=== PATIENT | male | born 1935 | race Caucasian/White ===

== ENCOUNTER → 2016-07-30 | Outpatient (CLI) | payer OTHER, BC | LOC: BMCIMAGING 09:08 | PROVIDERS: ATTEND Physician Assistant | DX: M51.36 Other intervertebral disc degeneration, lumbar region (principal) ==

== ENCOUNTER → 2016-09-11 | Outpatient (CLI) | payer OTHER, BC | LOC: BMCIMAGING 09:04 | PROVIDERS: ATTEND Family Medicine | DX: S49.92XA Unspecified injury of left shoulder and upper arm, initial encounter (principal); M19.012 Primary osteoarthritis, left shoulder ==

== ENCOUNTER → 2016-11-13 | Outpatient (CLI) | payer OTHER, BC | LOC: BMCIMAGING 07:11 | PROVIDERS: ATTEND Internal Medicine Cardiovascular Disease | DX: I65.23 Occlusion and stenosis of bilateral carotid arteries (principal); I25.10 Atherosclerotic heart disease of native coronary artery without angina pectoris ==

== ENCOUNTER 2016-12-27 04:48 | Emergency (ER) | payer OTHER, BC ==
--- NOTE | 2016-12-27 05:11 | EDPHY ---
H & P Stated Complaint: SOB, anxiety HPI/ROS: HPI The patient presents with shortness of breath which awoke him from sleep at about 4:00 a.m. this morning. He sleeps with his CPAP machine on and he noticed that his respiratory rate was fast while wearing it. He checked his vital signs and says that his pulse was fast. He does not recall the exact number. His blood pressure was elevated and he recalls that his systolic blood pressure was 176. As he had continued symptoms so he came into the emergency department. He says he has had 1 similar prior episode and was diagnosed with dehydration. He denies any chest pain, nausea or vomiting, dizziness, leg swelling. He has no changes in his medications recently. He denies any coughing or fever, sore throat. His symptoms have now mostly resolved. REVIEW OF SYSTEMS Constitutional: No fever, no chills. Eyes: No discharge. ENT: No sore throat. Cardiovascular: No chest pain, no palpitations. Respiratory: No cough, positive for shortness of breath. Gastrointestinal: No abdominal pain, no vomiting. Genitourinary: No hematuria. Musculoskeletal: No back pain. Skin: No rashes. Neurological: No headache. PMHx: Hypertension, anxiety, CAD with stents in place Soc Hx: Housed PHYSICAL General Appearance: Alert, no distress Eyes: Pupils equal and round no pallor or injection ENT, Mouth: Mucous membranes moist Respiratory: There are no retractions, lungs are clear to auscultation Cardiovascular: Regular rate and rhythm Gastrointestinal: Abdomen is soft and non-tender, no masses, bowel sounds normal Neurological: A&O, moves all extremities Skin: Warm and dry, no rashes Musculoskeletal: Neck is supple non tender Extremities: symmetrical, full range of motion Psychiatric: Patient is oriented X 3, there is no agitation Source: Patient Exam Limitations: No limitations - Personal History Tetanus Vaccine Date: <10 years as of 2013 - Medical/Surgical History Hx Asthma: No Hx Chronic Respiratory Disease: No Hx Diabetes: No Hx Cardiac Disease: Yes Hx Renal Disease: No Hx Cirrhosis: No Hx Alcoholism: No Hx HIV/AIDS: No Hx Splenectomy or Spleen Trauma: No Other PMH: HX: HTN, hyperlipidemia, STENT PLACEMENT X4, HERNIA repair, L knee replacement, CATARACT REMOVAL - Social History Smoking Status: Former smoker Constitutional: Initial Vital Signs Temperature (C) 36.5 C 12/27/16 04:51 Heart Rate 92 12/27/16 04:51 Respiratory Rate 20 12/27/16 04:51 Blood Pressure 143/73 H 12/27/16 04:51 O2 Sat (%) 97 12/27/16 04:51 O2 Delivery Mode Room Air Allergies/Adverse Reactions: No Allergies [NKDA] Allergy (Verified 12/27/16 04:50) Home Medications: Medication Instructions Recorded Atorvastatin Calcium [Lipitor 40 40 mg PO HS 10/23/12 mg (*)] Pantoprazole Sodium [Protonix 40mg 40 mg PO DAILY 10/23/12 (*)] Aspirin [Aspirin 81mg (*)] 81 mg PO DAILY 09/24/13 Metoprolol Succinate Xr [Toprol Xl 50 mg PO HS 09/24/13 100 mg (*)] Multivitamins [Multivitamin (*)] 1 each PO DAILY 09/24/13 Crawford-3 Fatty Acids/Fish Oil 1 each PO DAILY 09/24/13 [Crawford 3 1,000 mg Softgel] Cholecalciferol (Vitamin D3) 2,000 unit PO DAILY 12/05/13 [Vitamin D3] Cyanocobalamin [Vitamin B12 (*)] 1,000 mcg PO DAILY 12/05/13 DESVENLAFAXINE SUCCINATE [PRISTIQ] 50 mg PO DAILY 12/05/13 LORazepam [Ativan (*)] 0.5 mg PO BID PRN 12/05/13 Losartan Potassium [Cozaar] 100 mg PO DAILY 12/05/13 Tamsulosin HCl [Flomax 0.4 MG (*)] 0.4 mg PO DAILY 12/05/13 Medical Decision Making - Diagnostics EKG Interpretation: EKG: Complete interpretation has been separately recorded in the [employer] archive. Summary impression: Normal sinus rhythm with nonspecific T-wave flattening in V2 and V3 Imaging Results: Chest x-ray two view shows no cardiomegaly, no effusion, no infiltrate, unchanged from prior chest x-ray, interpreted by me, radiology interpretation is pending. Differential Diagnosis: 81-year-old male with hypertension, CAD, anxiety presents with shortness of breath which awoke him from sleep while using his CPAP machine, symptoms have now mostly resolved. On exam, vital signs are normal, he is well-appearing with a normal physical exam. Differential diagnosis includes CHF, pneumonia, pleural effusion, pulmonary edema, pneumothorax, less likely pulmonary embolism given no chest pain. In the emergency department, labs were checked including troponin and were all normal. EKG showed nonspecific changes, though nothing suggestive of acute ischemia. The patient had no ongoing symptoms, vital signs were stable throughout his stay. The cause of his shortness of breath is not entirely clear , however I doubt any serious pathology. I will advise him to follow up with his regular doctor in the next few days. - Data Points Laboratory Results: Laboratory Results 12/27/16 05:19 12/27/16 05:19 12/27/16 12/27/16 05:19 05:19 WBC 6.11 10^3/uL 10^3/uL (3.80-9.50) RBC 4.69 10^6/uL 10^6/uL (4.40-6.38) Hgb 14.6 g/dL g/dL (13.7-17.5) Hct 42.2 % % (40.0-51.0) MCV 90.0 fL fL (81.5-99.8) MCH 31.1 pg pg (27.9-34.1) MCHC 34.6 g/dL g/dL (32.4-36.7) RDW 12.8 % % (11.5-15.2) Plt Count 189 10^3/uL 10^3/uL (150-400) MPV 9.0 fL fL (8.7-11.7) Neut % (Auto) 54.4 % % (39.3-74.2) Lymph % (Auto) 31.3 % % (15.0-45.0) Nuckolls % (Auto) 9.5 % % (4.5-13.0) Eos % (Auto) 3.1 % % (0.6-7.6) Baso % (Auto) 0.7 % % (0.3-1.7) Nucleat RBC Rel Count 0.0 % % (0.0-0.2) Absolute Neuts (auto) 3.33 10^3/uL 10^3/uL (1.70-6.50) Absolute Lymphs (auto) 1.91 10^3/uL 10^3/uL (1.00-3.00) Absolute Monos (auto) 0.58 10^3/uL 10^3/uL (0.30-0.80) Absolute Eos (auto) 0.19 10^3/uL 10^3/uL (0.03-0.40) Absolute Basos (auto) 0.04 10^3/uL 10^3/uL (0.02-0.10) Absolute Nucleated RBC 0.00 10^3/uL 10^3/uL (0-0.01) Immature Gran % 1.0 % % (0.0-1.1) Immature Gran # 0.06 10^3/uL 10^3/uL (0.00-0.10) Sodium 143 mEq/L mEq/L (134-144) Potassium 4.0 mEq/L mEq/L (3.5-5.2) Chloride 104 mEq/L mEq/L (97-110) Carbon Dioxide 26 mEq/l mEq/l (22-31) Anion Gap 13 mEq/L mEq/L (8-16) BUN 19 mg/dL mg/dL (7-23) Creatinine 0.9 mg/dL mg/dL (0.7-1.3) Estimated GFR > 60 Glucose 101 mg/dL H mg/dL (70-100) Calcium 9.1 mg/dL mg/dL (8.5-10.4) Total Bilirubin 0.5 mg/dL mg/dL (0.1-1.4) AST 29 IU/L IU/L (17-59) ALT 45 IU/L IU/L (21-72) Alkaline Phosphatase 74 IU/L IU/L (38-126) Troponin I < 0.012 ng/mL ng/mL (0.000-0.034) Total Protein 7.0 g/dL g/dL (6.3-8.2) Albumin 4.0 g/dL g/dL (3.5-5.0) Departure - Departure Disposition: Home, Routine, Self-Care Clinical Impression: Shortness of breath Condition: Good Instructions: Dyspnea (ED) Additional Instructions: Please follow-up with your regular doctor in the next 2 days. You should return to the emergency room if your symptoms return at all. Referrals: Alejandra Feliciano MD [Primary Care Provider] - As per Instructions
--- NOTE | 2016-12-27 05:16 | CPEKG ---
Heart Rate: 87 RR Interval: 690 P-R Interval: 244 QRSD Interval: 98 QT Interval: 388 QTC Interval: 467 P [place]: -26 QRS [place]: 45 T Wave [place]: 20 EKG Severity - ABNORMAL ECG - EKG Impression: SINUS RHYTHM EKG Impression: ATRIAL PREMATURE COMPLEX EKG Impression: FIRST DEGREE AV BLOCK Electronically Signed By: Niki Jay 27-Dec-2016 07:05:47
--- NOTE | 2016-12-27 05:16 | CPEKG ---
Heart Rate: 87 RR Interval: 690 P-R Interval: 244 QRSD Interval: 98 QT Interval: 388 QTC Interval: 467 P [place]: -26 QRS [place]: 45 T Wave [place]: 20 EKG Severity - ABNORMAL ECG - EKG Impression: SINUS RHYTHM EKG Impression: ATRIAL PREMATURE COMPLEX EKG Impression: FIRST DEGREE AV BLOCK Electronically Signed By: Niki Jay 27-Dec-2016 07:05:47
[2016-12-27 05:42] LABS: PLATELET COUNT 189 10^3/uL (150-400)
[2016-12-27 06:35] VITALS: BP 140/87; PULSE 79; RESP 18; TEMP 97.9; O2SAT 93
== END 2016-12-27 06:32 | disposition home or self-care (01) ==
DX: R06.02 Shortness of breath (principal); I10 Essential (primary) hypertension; I25.10 Atherosclerotic heart disease of native coronary artery without angina pectoris; Z79.82 Long term (current) use of aspirin; Z87.891 Personal history of nicotine dependence; Z95.5 Presence of coronary angioplasty implant and graft

== ENCOUNTER → 2017-02-18 | Outpatient (CLI) | payer OTHER, BC | LOC: FIMAGING 09:50 | PROVIDERS: ATTEND Orthopaedic Surgery Hand Surgery | DX: M25.512 Pain in left shoulder (principal); M75.102 Unspecified rotator cuff tear or rupture of left shoulder, not specified as traumatic; M75.22 Bicipital tendinitis, left shoulder; M75.82 Other shoulder lesions, left shoulder; M19.012 Primary osteoarthritis, left shoulder ==

== ENCOUNTER 2017-08-10 05:14 | Day surgery (SDC) | payer OTHER, BC ==
[2017-08-10] MEDS ORDERED: ceFAZolin 2 GM/SWFI 2 GM/20 ML SYR IVP ONE (05:39)
[2017-08-10] MEDS ORDERED: LIDOCAINE 1% 2 ML INJ ID PRN (05:40)
[2017-08-10] MEDS ORDERED: LR 1,000 ML IV ONE (05:40)
[2017-08-10] MEDS ORDERED: ceFAZolin 2 GM/DEXTROSE 100 ML IV ONE (06:00)
[2017-08-10] MEDS ORDERED: LIDOCAINE 2% 5 ML SDV ONE ×2 (06:48→07:12)
[2017-08-10] MEDS ORDERED: BUPIVACAINE 0.25% 30 ML SDV ONE (06:48)
[2017-08-10] MEDS ORDERED: ceFAZolin 1 GM/5 ML SYR ONE (06:48)
--- NOTE | 2017-08-10 07:00 | PDANEPAE ---
ANE History of Present Illness 82 yo male for L second toe placement. ANE Past Medical History - Cardiovascular History Hx Hypertension: Yes Hx Arrhythmias: No Hx Chest Pain: No Hx Coronary Artery / Peripheral Vascular Disease: Yes Hx CHF / Valvular Disease: No Hx Palpitations: No Cardiovascular History Comment: STENT X3 MOST RECENT 2014. 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 did not order any new tests at visit a few months ago, and said he would see him in another year - Pulmonary History Hx COPD: No Hx Asthma/Reactive Airway Disease: No Hx Recent Upper Respiratory Infection: No Hx Oxygen in Use at Home: No Hx Sleep Apnea: Yes Sleep Apnea Screening Result - Last Documented: Positive Pulmonary History Comment: MARKUS USES C-PAP INSTRUCTED TO BRING DOS - Neurologic History Hx Cerebrovascular Accident: No Hx Seizures: No Hx Dementia: No - Endocrine History Hx Diabetes: No Hypothyroid: No Hyperthyroid: No Obesity: no - Renal History Hx Renal Disorders: Yes Renal History Comment: BPH - Liver History Hx Hepatic Disorders: No - Neurological & Psychiatric Hx Hx Neurological and Psychiatric Disorders: Yes Neurological / Psychiatric History Comment: DEPRESSION - Cancer History Hx Cancer: No - Congenital Disorder History Hx Congenital Disorders: No - GI History Hx Gastrointestinal Disorders: Yes Gastrointestinal History Comment: HIATAL HERNIA - Other Health History Other Health History: OSTEOARTHRITIS ESPECIALLY RT HIP. SANAM SHLDR SORENESS. MISSING TEETH. 2ND TOE LT FOOT DEFORMITY - Chronic Pain History Chronic Pain: No - Surgical History Prior Surgeries: PILONIDAL CYST. SANAM CATARACTS. RT ING HERNIA. LT TOTAL KNEE. EGD ANE Review of Systems Review of Systems: - Exercise capacity METS (RN): 4 METS - Systems Constitutional: Reports: no symptoms Cardiac: Reports: no symptoms ANE Patient History - Allergies Allergies/Adverse Reactions: No Allergies [NKDA] Allergy (Verified 12/27/16 04:50) - Home Medications Home Medications: Atorvastatin Calcium [Lipitor 40 mg (*)] 40 mg PO DAILY 10/23/12 [Last Taken 05:00] Pantoprazole Sodium [Protonix 40mg (*)] 40 mg PO DAILY 10/23/12 [Last Taken 05:00] Aspirin [Aspirin 81mg (*)] 81 mg PO DAILY 09/24/13 [Last Taken 08/10/17 05:00] Multivitamins [Multivitamin (*)] 1 each PO DAILY 09/24/13 [Last Taken 1 Week Ago ~08/03/17] Lincoln-3 Fatty Acids/Fish Oil [Lincoln 3 1,000 mg Softgel] 1 each PO DAILY [Last Taken 1 Week Ago ~08/03/17] Cholecalciferol (Vitamin D3) [Vitamin D3] 2,000 unit PO DAILY 12/05/13 [Last Taken 1 Week Ago ~08/03/17] Cyanocobalamin [Vitamin B12 (*)] 1,000 mcg PO DAILY 12/05/13 [Last Taken 1 Week Ago ~08/03/17] DESVENLAFAXINE SUCCINATE [PRISTIQ] 50 mg PO DAILY 12/05/13 [Last Taken 08/10/17 05:00] LORazepam [Ativan (*)] 0.5 mg PO BID PRN 12/05/13 [Last Taken 08/10/17 05:00] Losartan Potassium [Cozaar] 100 mg PO DAILY 12/05/13 [Last Taken 08/10/17 05:00] Tamsulosin HCl [Flomax 0.4 MG (*)] 0.4 mg PO HS 12/05/13 [Last Taken 08/09/17 21 :00] Amlodipine Bes/Olmesartan Med DAILY 07/21/17 [Last Taken 08/10/17 05:00] - NPO status NPO Since - Liquids (Date): 08/10/17 NPO Since - Liquids (Time): 05:00 (water with meds) NPO Since - Solids (Date): 08/09/17 NPO Since - Solids (Time): 21:00 - Anes Hx Anes Hx: no prior problems - Smoking Hx Smoking Status: Former smoker (quit about 40 yrs ago) Marijuana use: No - Alcohol Use Alcohol Use: None (sober x 40 years) - Family Anes Hx Family Anes Hx: neg - N/A ANE Labs/Vital Signs - Vital Signs Blood Pressure: 130/76 Heart Rate: 64 Respiratory Rate: 16 O2 Sat (%): 93 Height: 170.18 cm Weight: 81.647 kg ANE Physical Exam - Airway Neck exam: FROM Mallampati Score: Class 3 Mouth exam: poor dentition - Pulmonary Pulmonary: clear to auscultation - Cardiovascular Cardiovascular: regular rate and rhythym - ASA Status ASA Status: III ANE Anesthesia Plan Anesthesia Plan: GA with mask Total IV Anesthesia: Yes
--- NOTE | 2017-08-10 07:00 | PDHPUP ---
History & Physical Update H&P update statement: This history and physical update is based on an assessment of the patient which was completed after admission or registration (within 24 hours), but prior to the surgery/procedure. H&P update: H&P reviewed & patient examined
[2017-08-10] MEDS ORDERED: PROPOFOL/EMULSION 500 MG/50 ML BOTTLE IV ONE (07:12)
[2017-08-10] MEDS ORDERED: fentaNYL 100 MCG/2 ML INJ ONE (07:12)
[2017-08-10] MEDS ORDERED: DEXAMETHASONE 4 MG/ML VIAL ONE ×2 (07:16)
[2017-08-10] MEDS ORDERED: fentaNYL 100 MCG/2 ML INJ IVP PRN (08:03)
[2017-08-10] MEDS ORDERED: ACETAMINOPHEN 500 MG TAB PO PRN (08:03)
[2017-08-10] MEDS ORDERED: LR 500 ML IV PRN (08:03)
[2017-08-10] MEDS ORDERED: HYDROCODONE/APAP 5/325 TAB PO PRN (08:03)
[2017-08-10] MEDS ORDERED: NALOXONE HCL 0.4 MG/ML INJ IVP PRN (08:03)
[2017-08-10] MEDS ORDERED: ALBUTEROL 3 ML DEYVIAL IH PRN (08:03)
[2017-08-10] MEDS ORDERED: ONDANSETRON 4 MG/2 ML VIAL IVP PRN (08:03)
--- NOTE | 2017-08-10 08:04 | POSTANESTH ---
Post Anesthetic Evaluation Cardiovascular Status: Normal, Stable Respiratory Status: Normal, Stable Level of Consciousness/Mental Status: Can Participate in Eval, Alert and Oriented Pain Control: Adequate, Prn Tx Ordered Nausea/Vomiting Control: Adequate, Prn Tx Ordered Complications Possibly Related to Anesthesia: None Noted
--- NOTE | 2017-08-10 08:15 | POSTOPPROG ---
Post Op Note Date of Operation: 08/10/17 Surgeon: Abiel Ramos Anesthesia: IV Sedation Pre-op Diagnosis: left 2nd hammertoe Post-op Diagnosis: same Indication: pain to PIP, left 2nd toe Procedure: arthrodesis left 2nd toe Inf/Abcess present in the surg proc area at time of surgery?: No EBL: Minimal Total fluids administered: per anesth Complications: none
[2017-08-10] MEDS ORDERED: ONDANSETRON DISINTEGRATING 4 MG TAB PO PRN (08:21)
[2017-08-10 09:55] VITALS: BP 129/65
--- NOTE | 2017-08-10 11:27 | GOP ---
[f rep st] OPERATIVE REPORT DATE OF OPERATION: 08/10/2017 SURGEON: Abiel Ramos DPM [place] PHOTOGRAPHER: None. ANESTHESIA: Local with monitored anesthesia care. PREOPERATIVE DIAGNOSIS: 1. Left foot 2nd toe hammertoe. 2. Joint deformity second metatarsophalangeal left foot. POSTOPERATIVE DIAGNOSIS: 1. Left foot 2nd toe hammertoe. 2. Joint deformity second metatarsophalangeal left foot. PROCEDURE PERFORMED: 1. Arthrodesis of the proximal interphalangeal joint, 2nd toe, left foot. 2. Tenotomy and capsulotomy of the 2nd metatarsophalangeal joint, left foot. FINDINGS: ESTIMATED BLOOD LOSS: Scant. DESCRIPTION OF PROCEDURE: Under mild sedation, the patient was brought to the operating room, placed on the operating table in the supine position. Following further IV sedation, a forefoot block of 0 .25% Marcaine plain was infiltrated about the patient's left forefoot. The foot was then scrubbed, p repped, and draped in the usual aseptic manner. A sterile pneumatic tourniquet was then placed about the patient's well-padded supramalleolar area of the left ankle. The left foot was then exsanguinat ed with an Esmarch bandage and the tourniquet was inflated to 250 mmHg. Attention was then directed to the area overlying the dorsal aspect of the 2nd proximal phalangeal ester int where 2 semi-elliptical transverse incision was placed over this area encompassing an already pre sent callus deformity. The complete ellipse of skin was then removed sharply. The incision was deep ened via sharp and blunt dissection with care being taken to identify retract all vital neurovascular structures. All bleeders were ligated and cauterized as necessary. A transverse tenotomy and capsulotomy over the proximal interphalangeal joint was made. The soft tis maxime structures were reflected medially and laterally thus exposing the head of the proximal phalanx a nd the base of the middle phalanx. At this time utilizing a sagittal saw, the articular surface of t he base of the middle phalanx was removed and passed from the operative field. A roughly 3 mm portio n of the head of the proximal phalanx was removed and passed from the operative field. At this time, the middle and proximal phalanges was prepared as per the implant instruction guidelines. At this t wiley, the receiving end of the implant was placed in base of the middle phalanx and the male portion w as placed in the proximal phalanx. This was a 10 degree angled implant to hold some natural plantar flexion at the proximal interphalangeal joint. The implant was then inserted into the receiving ends and the 2 ends of the arthrodesis site was well coapted. Intraoperative x-rays were taken. There w as some mild gapping within the plantar aspect of the arthrodesis site, but the implant appears to be holding quite well and the position of the toe is appropriate. At this time, there was still some dorsal contracture at the 2nd metatarsophalangeal joint. A 1 cm l azy S type incision was made over this joint. The incision was deepened via sharp and blunt dissecti on, care being taken to identify and retract all vital neurovascular structures. All bleeders were l igated and cauterized as necessary. Next, utilizing a hemostat and blunt dissection, the long extensor tendon was identified and transect ed. This released an appropriate amount of dorsal contracture and leveled the half dorsal angulation of the proximal phalanx. The wounds were flushed with copious amounts of sterile normal saline, and the deep structures were closed with 4-0 Monocryl and the skin was closed with 4-0 Prolene interrupt ed simple sutures. The wounds were dressed with Xeroform and a sterile compressive dressing consisti ng of 4 x 4s and Mikey. An Barrett bandage was then applied. The tourniquet was deflated and a prompt h yperemic response was noted to all digits of both foot. Final intraoperative final fluoroscopic imag es were taken and noted to be adequate. The patient tolerated the procedure and anesthesia well. He was transferred to the recovery room wit h vital signs stable, vascular status intact to all digits of left foot. Following a period of posto p monitoring, the patient will be discharged home with the following written and oral postoperative i nstructions: 1. Keep dressing clean, dry, and intact. 2. Ice and elevate as instructed. 3. Use a surgical shoe at all times when ambulating. 4. All followup questions or concerns should be directed toward [facility] at [phone]. PATHOLOGY: None. HEMOSTASIS: Pneumatic ankle tourniquet about the patient's left ankle at 250 mmHg for 33 minutes. MATERIALS: A 10 degree Cleary and Nephew intramedullary arthrodesis with implant. INJECTABLES: 20 cc of 0.25% Marcaine plain. COMPLICATIONS: None. INDICATIONS FOR PROCEDURE: The patient is an otherwise healthy 82-year-old gentleman who presented t o my office multiple times over the last 12-24 months for pain in the dorsal aspect of the 2nd proxim al interphalangeal joint due to rubbing of the toe against the toe box due to the contracture deformi ty of his 2nd toe, left foot. The patient has used multiple different padding devices, as well as th e patient has also tried multiple different types of shoe gear. The patient understands the risks, b enefits, and alternatives to the procedure presented and wishes to proceed. /[id number]/MODL
== END 2017-08-10 10:30 | disposition home or self-care (01) ==
LOC: FSGY 05:14
PROVIDERS: ATTEND Podiatrist Foot & Ankle Surgery
PROC: 0SGQ0ZZ (ICD-10-PCS; principal; 2017-08-10 07:15)
DX: M20.42 Other hammer toe(s) (acquired), left foot (principal); I25.10 Atherosclerotic heart disease of native coronary artery without angina pectoris; Z95.5 Presence of coronary angioplasty implant and graft; I10 Essential (primary) hypertension; G47.33 Obstructive sleep apnea (adult) (pediatric)
CPT/HCPCS: C1713; J0690; J1100; J2704; J3010

== ENCOUNTER → 2017-10-28 | Outpatient (CLI) | payer OTHER, BC | LOC: BMCIMAGING 09:22 | PROVIDERS: ATTEND Orthopaedic Surgery | DX: M16.11 Unilateral primary osteoarthritis, right hip (principal) ==

== ENCOUNTER → 2018-06-23 | Outpatient (CLI) | payer OTHER, BC | LOC: BMCIMAGING 08:52 → EDSTATUS 09:14 | PROVIDERS: ATTEND Orthopaedic Surgery | DX: M17.11 Unilateral primary osteoarthritis, right knee (principal); M16.11 Unilateral primary osteoarthritis, right hip; M22.41 Chondromalacia patellae, right knee; I87.8 Other specified disorders of veins ==

== ENCOUNTER 2018-07-21 22:28 | Observation (INO) | payer OTHER, BC ==
[2018-07-21 22:54] LABS: PLATELET COUNT 212 10^3/uL (150-400)
[2018-07-21] MEDS ORDERED: NS 500 ML IV ONE (22:56)
--- NOTE | 2018-07-21 23:01 | EDPHY ---
H & P Stated Complaint: HEADACHE, CHEST TIGHTNESS, HTN Time Seen by Provider: 07/21/18 22:38 HPI/ROS: HPI The patient presents with headache, chest discomfort, elevated blood pressure. This evening he developed a diffuse throbbing headache which she occasionally has. He took 2 aspirin 81 mg tabs with improvement in his headache. He checked his blood pressure at home and noticed it was in the 180s over 90s which is elevated for him. He normally runs in the 140s over 60s. He believes he recently stopped taking his antihypertensive medication because he was having some orthostatic hypotension type symptoms. Then at about 10 15 he developed mild chest discomfort which he feels in his midsternal region which lasted for about 10-15 minutes and improved while he was driving here. This discomfort did not radiate, was very mild, not associated with any nausea, vomiting, dizziness, diaphoresis. He has never had a before. He exercises 4 to 5 times a week with no chest pain.. REVIEW OF SYSTEMS 10 systems were reviewed and negative with the exception of the elements mentioned in the history of present illness. PMHx: CAD, stents in place, hypertension Soc Hx: Here with his , nonsmoker PHYSICAL General Appearance: Alert, no distress Eyes: Pupils equal and round no pallor or injection ENT, Mouth: Mucous membranes moist Respiratory: There are no retractions, lungs are clear to auscultation Cardiovascular: Regular rate and rhythm Gastrointestinal: Abdomen is soft and non-tender, no masses, bowel sounds normal Neurological: A&O, moves all extremities Skin: Warm and dry, no rashes Musculoskeletal: Neck is supple non tender Extremities: symmetrical, full range of motion Psychiatric: Patient is oriented X 3, there is no agitation Source: Patient, Old records Exam Limitations: No limitations - Personal History Current Tetanus/Diphtheria Vaccine: Yes Current Tetanus Diphtheria and Acellular Pertussis (TDAP): Yes Tetanus Vaccine Date: <10 years as of 2013 - Medical/Surgical History Hx Asthma: No Hx Chronic Respiratory Disease: No Hx Diabetes: No Hx Cardiac Disease: Yes Hx Renal Disease: No Hx Cirrhosis: No Hx Alcoholism: No Hx HIV/AIDS: No Hx Splenectomy or Spleen Trauma: No Other PMH: HX: HTN, hyperlipidemia, STENT PLACEMENT X4, HERNIA repair, L knee replacement, CATARACT REMOVAL - Social History Smoking Status: Former smoker Constitutional: Initial Vital Signs Temperature (C) 36.6 C 07/21/18 22:30 Heart Rate 84 07/21/18 22:30 Respiratory Rate 18 07/21/18 22:30 Blood Pressure 189/84 H 07/21/18 22:30 O2 Sat (%) 97 07/21/18 22:30 O2 Delivery Mode Room Air Allergies/Adverse Reactions: No Allergies [NKDA] Allergy (Verified 07/21/18 22:32) Home Medications: Medication Instructions Recorded Atorvastatin Calcium [Lipitor 40 40 mg PO DAILY 10/23/12 mg (*)] Pantoprazole Sodium [Protonix 40mg 40 mg PO DAILY 10/23/12 (*)] Aspirin [Aspirin 81mg (*)] 81 mg PO DAILY 09/24/13 Multivitamins [Multivitamin (*)] 1 each PO DAILY 09/24/13 Richardson-3 Fatty Acids/Fish Oil 1 each PO DAILY 09/24/13 [Richardson 3 1,000 mg Softgel] Cholecalciferol (Vitamin D3) 2,000 unit PO DAILY 12/05/13 [Vitamin D3] Cyanocobalamin [Vitamin B12 (*)] 1,000 mcg PO DAILY 12/05/13 DESVENLAFAXINE SUCCINATE [PRISTIQ] 50 mg PO DAILY 12/05/13 LORazepam [Ativan (*)] 0.5 mg PO BID PRN 12/05/13 Losartan Potassium [Cozaar] 100 mg PO DAILY 12/05/13 Tamsulosin HCl [Flomax 0.4 MG (*)] 0.4 mg PO HS 12/05/13 Amlodipine Bes/Olmesartan Med DAILY 07/21/17 Medical Decision Making - Diagnostics EKG Interpretation: EKG: Complete interpretation has been separately recorded in the [facility] archive. Summary impression: Normal sinus rhythm Imaging Results: Imaging Impressions Chest X-Ray 07/21/18 22:45 Impression: Mild stable cardiac silhouette enlargement, with no evidence of congestive heart failure or focal infiltrate. Differential Diagnosis: 83-year-old man with history of CAD status post cardiac stent placed presents with transient chest pain. His heart score is 4. EKG, troponin, chest x-ray all unremarkable. Plan for admission to the hospital given his heart score. Remainder of labs is unremarkable. Differential diagnosis includes GERD, ACS, muscle strain. Case discussed with Dr. Erickson of the hospitalist service for admission. - Data Points Laboratory Results: Laboratory Results 07/21/18 22:45 07/21/18 22:45 07/21/18 07/21/18 07/21/18 22:48 22:45 22:45 WBC 7.30 10^3/uL 10^3/uL (3.80-9.50) RBC 5.02 10^6/uL 10^6/uL (4.40-6.38) Hgb 15.5 g/dL g/dL (13.7-17.5) Hct 46.3 % % (40.0-51.0) MCV 92.2 fL fL (81.5-99.8) MCH 30.9 pg pg (27.9-34.1) MCHC 33.5 g/dL g/dL (32.4-36.7) RDW 12.5 % % (11.5-15.2) Plt Count 212 10^3/uL 10^3/uL (150-400) MPV 8.8 fL fL (8.7-11.7) Neut % (Auto) 51.1 % % (39.3-74.2) Lymph % (Auto) 33.8 % % (15.0-45.0) [place] % (Auto) 12.5 % % (4.5-13.0) Eos % (Auto) 1.8 % % (0.6-7.6) Baso % (Auto) 0.7 % % (0.3-1.7) Nucleat RBC Rel Count 0.0 % % (0.0-0.2) Absolute Neuts (auto) 3.73 10^3/uL 10^3/uL (1.70-6.50) Absolute Lymphs (auto) 2.47 10^3/uL 10^3/uL (1.00-3.00) Absolute Monos (auto) 0.91 10^3/uL H 10^3/uL (0.30-0.80) Absolute Eos (auto) 0.13 10^3/uL 10^3/uL (0.03-0.40) Absolute Basos (auto) 0.05 10^3/uL 10^3/uL (0.02-0.10) Absolute Nucleated RBC 0.00 10^3/uL 10^3/uL (0-0.01) Immature Gran % 0.1 % % (0.0-1.1) Immature Gran # 0.01 10^3/uL 10^3/uL (0.00-0.10) Sodium 136 mEq/L mEq/L (135-145) Potassium 3.7 mEq/L mEq/L (3.5-5.2) Chloride 99 mEq/L mEq/L (97-110) Carbon Dioxide 26 mEq/l mEq/l (22-31) Anion Gap 11 mEq/L mEq/L (6-14) BUN 16 mg/dL mg/dL (7-23) Creatinine 1.0 mg/dL mg/dL (0.7-1.3) Estimated GFR > 60 Glucose 114 mg/dL H mg/dL (70-100) Calcium 9.6 mg/dL mg/dL (8.5-10.4) POC Troponin I 0.02 ng/mL ng/mL (0.00-0.08) Medications Given: Discontinued Medications Acetaminophen (Tylenol) 650 mg PO EDNOW ONE Stop: 07/22/18 00:35 Last Admin: 07/22/18 00:35 Dose: 650 mg Sodium Chloride (Ns) 500 mls @ 1,000 mls/hr IV EDNOW ONE PRN Reason: Protocol Stop: 07/21/18 23:25 Last Admin: 07/21/18 23:06 Dose: 500 mls Point of Care Test Results: Chemistry 07/21/18 22:48 POC Troponin I 0.02 ng/mL ng/mL (0.00-0.08) Departure - Departure Disposition: [facility] Inpatient Acute Condition: Good
[2018-07-22] MEDS ORDERED: ACETAMINOPHEN 325 MG TAB ONE (00:33)
[2018-07-22] MEDS ORDERED: ACETAMINOPHEN 325 MG TAB PO ONE (00:34)
[2018-07-22] MEDS ORDERED: ONDANSETRON DISINTEGRATING 4 MG TAB PO PRN (01:03)
[2018-07-22] MEDS ORDERED: ONDANSETRON 4 MG/2 ML VIAL IVP PRN (01:03)
[2018-07-22] MEDS ORDERED: ACETAMINOPHEN 325 MG TAB PO PRN (01:03)
[2018-07-22] MEDS ORDERED: NITROGLYCERIN 0.4 MG BTL SL PRN (01:07)
--- NOTE | 2018-07-22 01:14 | PDGENHP ---
History and Physical - Chief Complaint chest pain - History of Present Illness Source - patient provides history appears reliable. EMR was reviewed and case discussed with ED provider. HPI-this is a very pleasant 83-year-old gentleman with a past medical history significant for CAD with history of stent x4, hiatal hernia with GERD, BPH, HTN , HLD who presents to the emergency department late this evening with complaints of headache, elevated blood pressures and 10-15 minutes of chest pain. Patient developed a headache earlier in the evening. He took two 81 mg tabs of aspirin with some improvement in his headache. He checked his blood pressure which was elevated 180/90s and at baseline has been 140s over 60s. Patient reports that patient was developing orthostasis and so his plug shaper hand (whose name he can't recall) with [facility] took him off of his blood pressure medications which she also cannot recall which. Since that time patient states his blood pressures have been well controlled at home and he checks them intermittently. Patient notes that he occasionally does have similar headaches as the 1 he experienced today. Patient reports that he ate dinner and subsequently went to bed to read for awhile. He subsequently developed some substernal chest discomfort. He denies any stabbing or pressure type sensation. No associated shortness of breath, diaphoresis, nausea/ vomiting or radiating pain. Patient denies any history of lower extremity edema , orthopnea or PND. Patient notes that he is relatively healthy and active. He works at 4 times weekly if not more. He has never developed any chest discomfort. Family history significant for coronary artery disease in both parents over 70. Patient has not had a stress test in several years. History Information - Allergies/Home Medication List Allergies/Adverse Reactions: No Allergies [NKDA] Allergy (Verified 07/21/18 22:32) Home Medications: Atorvastatin Calcium [Lipitor 40 mg (*)] 40 mg PO DAILY 10/23/12 [Last Taken 05:00] Pantoprazole Sodium [Protonix 40mg (*)] 40 mg PO DAILY 10/23/12 [Last Taken 05:00] Aspirin [Aspirin 81mg (*)] 81 mg PO DAILY 09/24/13 [Last Taken 08/10/17 05:00] Multivitamins [Multivitamin (*)] 1 each PO DAILY 09/24/13 [Last Taken 1 Week Ago ~08/03/17] [place]-3 Fatty Acids/Fish Oil [[place] 3 1,000 mg Softgel] 1 each PO DAILY [Last Taken 1 Week Ago ~08/03/17] Cholecalciferol (Vitamin D3) [Vitamin D3] 2,000 unit PO DAILY 12/05/13 [Last Taken 1 Week Ago ~08/03/17] Cyanocobalamin [Vitamin B12 (*)] 1,000 mcg PO DAILY 12/05/13 [Last Taken 1 Week Ago ~08/03/17] DESVENLAFAXINE SUCCINATE [PRISTIQ] 50 mg PO DAILY 12/05/13 [Last Taken 08/10/17 05:00] LORazepam [Ativan (*)] 0.5 mg PO BID PRN 12/05/13 [Last Taken 08/10/17 05:00] Losartan Potassium [Cozaar] 100 mg PO DAILY 12/05/13 [Last Taken 08/10/17 05:00] Tamsulosin HCl [Flomax 0.4 MG (*)] 0.4 mg PO HS 12/05/13 [Last Taken 08/09/17 21 :00] Amlodipine Bes/Olmesartan Med DAILY 07/21/17 [Last Taken 08/10/17 05:00] I have personally reviewed and updated: family history, medical history, social history, surgical history - Past Medical History Additional medical history: CAD with history of stentx4. BPH, HTN, HLD, hiatal hernia - Surgical History Additional surgical history: Cardiac cath x2, left TKA, cataract extraction with lens placement bilaterally, pilonidal cyst removal in his youth, right inguinal hernia repair - Family History Additional family history: Family history significant for cardiac disease in mother and father at age greater than 70. Patient has 2 adult sons 1 of whom lives in [facility] and he reports both are very active and healthy. - Social History Smoking Status: Former smoker Tobacco Use: Cigarettes (Patient quit 40 years ago) Alcohol Use: None Drug Use: None Additional social history: Patient lives with his girlfriend. One son lives in [place] and other in [place]. Cor status-full. Patient would not want for prolonged life support. Review of Systems Review of Systems: ROS: 10pt was reviewed & negative except for what was stated in HPI & below Constitutional: Reports: no symptoms Cardiac: Reports: chest pain. Denies: edema, lightheadedness, palpitations Respiratory: Reports: no symptoms Gastrointestinal: Reports: no symptoms Neurological: Reports: headache Physical Exam Physical Exam: Selected Entries 07/21/18 22:30 Blood Pressure Automatic Method Heart Rate 84 Respiratory 18 Rate O2 Sat (%) 97 Temperature (C) 36.6 C Blood Pressure 189/84 H Mean Arterial 119 H Pressure (MAP) O2 Delivery Room Air Mode Temperature Oral Source Temp Pulse Resp BP Pulse Ox 36.7 C 76 18 142/67 H 96 07/21/18 23:59 07/22/18 00:15 07/22/18 00:15 07/22/18 00:15 07/22/18 00:15 Constitutional: no apparent distress, appears nourished, other (NAD. Pleasant adult gentleman is resting comfortably in bed.) Eyes: PERRL (Lens reflex appreciated bilaterally), anicteric sclera, EOMI, No scleral injection Ears, Nose, Mouth, Throat: moist mucous membranes, other (No nasal discharge.), No poor dentition Cardiovascular: regular rate and rhythym (Slightly distant heart sounds. Occasionally irregular beat.), no murmur, rub, or gallop, systolic murmur, pulses symmetric bilaterally, No edema Peripheral Pulses: 1+: dorsalis-pedis (R), dorsalis-pedis (L) Respiratory: no respiratory distress, no rales or rhonchi, clear to auscultation , No inspiratory crackles Gastrointestinal: normoactive bowel sounds, soft, non-tender abdomen, no palpable masses Genitourinary: no bladder tenderness, No jain in urethra Skin: warm, normal color, no rashes or abrasions Musculoskeletal: full muscle strength, other (Patient independently. Moves all extremities.) Neurologic: AAOx3, sensation intact bilaterally, other (Grossly nonfocal exam.) , No facial droop Psychiatric: interacting appropriately, not anxious, not encephalopathic, thought process linear Lab Data & Imaging Review 07/21/18 22:45 07/21/18 22:45 WBC 7.30 10^3/uL (3.80-9.50) 07/21/18 22:45 RBC 5.02 10^6/uL (4.40-6.38) 07/21/18 22:45 Hgb 15.5 g/dL (13.7-17.5) 07/21/18 22:45 Hct 46.3 % (40.0-51.0) 07/21/18 22:45 MCV 92.2 fL (81.5-99.8) 07/21/18 22:45 MCH 30.9 pg (27.9-34.1) 07/21/18 22:45 MCHC 33.5 g/dL (32.4-36.7) 07/21/18 22:45 RDW 12.5 % (11.5-15.2) 07/21/18 22:45 Plt Count 212 10^3/uL (150-400) 07/21/18 22:45 MPV 8.8 fL (8.7-11.7) 07/21/18 22:45 Neut % (Auto) 51.1 % (39.3-74.2) 07/21/18 22:45 Lymph % (Auto) 33.8 % (15.0-45.0) 07/21/18 22:45 [place] % (Auto) 12.5 % (4.5-13.0) 07/21/18 22:45 Eos % (Auto) 1.8 % (0.6-7.6) 07/21/18 22:45 Baso % (Auto) 0.7 % (0.3-1.7) 07/21/18 22:45 Nucleat RBC Rel Count 0.0 % (0.0-0.2) 07/21/18 22:45 Absolute Neuts (auto) 3.73 10^3/uL (1.70-6.50) 07/21/18 22:45 Absolute Lymphs (auto) 2.47 10^3/uL (1.00-3.00) 07/21/18 22:45 Absolute Monos (auto) 0.91 10^3/uL (0.30-0.80) H 07/21/18 22:45 Absolute Eos (auto) 0.13 10^3/uL (0.03-0.40) 07/21/18 22:45 Absolute Basos (auto) 0.05 10^3/uL (0.02-0.10) 07/21/18 22:45 Absolute Nucleated RBC 0.00 10^3/uL (0-0.01) 07/21/18 22:45 Immature Gran % 0.1 % (0.0-1.1) 07/21/18 22:45 Immature Gran # 0.01 10^3/uL (0.00-0.10) 07/21/18 22:45 Sodium 136 mEq/L (135-145) 07/21/18 22:45 Potassium 3.7 mEq/L (3.5-5.2) 07/21/18 22:45 Chloride 99 mEq/L (97-110) 07/21/18 22:45 Carbon Dioxide 26 mEq/l (22-31) 07/21/18 22:45 Anion Gap 11 mEq/L (6-14) 07/21/18 22:45 BUN 16 mg/dL (7-23) 07/21/18 22:45 Creatinine 1.0 mg/dL (0.7-1.3) 07/21/18 22:45 Estimated GFR > 60 07/21/18 22:45 Glucose 114 mg/dL (70-100) H 07/21/18 22:45 Calcium 9.6 mg/dL (8.5-10.4) 07/21/18 22:45 POC Troponin I 0.02 ng/mL (0.00-0.08) 07/21/18 22:48 Imaging Review: Upright Chest, PA and Lateral Views, at 10:58 PM Clinical History: 83-year-old male in the ED with chest pain and a history of multiple cardiac stents. Comparison Study: Chest, dated 12/27/2016. Findings: Telemetry monitoring lead lines are present. The cardiac is mildly enlarged. There is mild tortuosity of the descending thoracic aorta, with mural atherosclerotic calcification aortic knob there is no focal infiltrate, atelectasis, pleural effusion, peripheral interstitial edema, or pneumothorax. The osseous structures are age-appropriate. Impression: Mild stable cardiac silhouette enlargement, with no evidence of congestive heart failure or focal infiltrate. Dictated By: Cristofer Win MD EKG additional interpertation: NSR 70s. PACs. Frist degree AV block, q wave inferior lead III stable compared to EKG from 2017. QTc 456. Assessment & Plan Assessment: this is a very pleasant 83-year-old gentleman with a past medical history significant for CAD with history of stent x4, hiatal hernia with GERD, BPH, HTN , HLD who presents to the emergency department late this evening with complaints of headache, elevated blood pressures and 10-15 minutes of chest pain. #chest pain - pain resolved before arrival. Patient took 2x81mg ASA prior to arrival for DICKSON pain. initial EKG and trop nondiagnostic. HEART score 4. serial enzymes for r/o and NM stress in AM. #benign essential HTN - BPs improved without intervention. He was previously taken off his anti-hypertensive medications 3 months ago #DICKSON - resolved s/p ASA taken at home and now tylenol in ED. chronic medical issues #BPH - tamsulosin. pt asx #hiatal hernia/gerd - protonix. #HLD - continue statin #CAD - ASA, statin. FEN - SLIV. NPO except for sips/meds. PPX - SCDs. holding anticoagulation at this time. encourage mobilization. COR - FULL. Patient does not want prolonged life support. Dispo - Patient admitted to observation status on PCU for close cardiac monitoring. Pending stress testing in AM anticipate less than 2 midnight stay.
--- NOTE | 2018-07-22 07:23 | CPEKG ---
Test Reason : OPEN Blood Pressure : / mmHG Vent. Rate : 075 BPM Atrial Rate : 074 BPM P-R Int : 315 ms QRS Dur : 109 ms QT Int : 408 ms P-R-T Axes : 030 044 031 degrees QTc Int : 456 ms Sinus rhythm Atrial premature complexes Prolonged TX interval Confirmed by Niki Jay ([id number]) on 07/22/2018 7:23:07 AM Referred By: Niki Jay Confirmed By:Niki Jay
[2018-07-22] MEDS ORDERED: REGADENOSON 0.4 MG/5 ML SYR IVP ONE (09:48)
--- NOTE | 2018-07-22 10:27 | CPR ---
[f rep st] NONINVASIVE CARDIAC PROCEDURE REPORT DATE OF PROCEDURE: 07/22/2018 PROCEDURE: Lexiscan nuclear stress test. INDICATION: The patient is an 83-year-old male with a history of hyperlipidemia and hypertension, wh o presented to the hospital with chest pain after having a drink. PROCEDURE IN DETAIL: Consent was obtained and the patient was placed on continuous telemetry. His r esting EKG revealed sinus bradycardia with a rate of 56. He has a long P-R interval of 318, indicati ng a first-degree AV block. There were no ST-T wave changes to suggest ischemia. The patient was in fused with Lexiscan and complained of a mild headache and flushing. He remained in normal sinus rhyt hm without any significant ST-T wave changes. His blood pressure at rest was 132/70 and remained sta ble throughout the procedure. PLAN: Await nuclear images. /[id number]/MODL
[2018-07-22 11:23] VITALS: BP 150/78
--- NOTE | 2018-07-22 12:10 | PDDCSUM ---
Discharge Summary Discharge Summary: very pleasant 83-year-old gentleman with a past medical history significant for CAD with history of stent x4, hiatal hernia with GERD, BPH, HTN, HLD admitted with cp. Negative w/u including negative Carisa scan. DDX: #chest pain - pain resolved before arrival. Patient took 2x81mg ASA prior to arrival for DICKSON pain. initial EKG and trop nondiagnostic. HEART score 4. serial enzymes negative. Carisa scan negative. No recurrence of chest pain #benign essential HTN - BPs improved without intervention. He was previously taken off his anti-hypertensive medications 3 months ago -no adjustments were made. BP has been appropriate #DICKSON - resolved s/p ASA taken at home and now tylenol in ED. #BPH - tamsulosin. pt asx #hiatal hernia/gerd - protonix. #HLD - continue statin #CAD - ASA, statin. Exam: NAD AAOX3 RRR CTA B S/NT/ND MEDS: SEE MED REC TOTAL TIME SPENT ON D/C IS 35 MINS
--- NOTE | 2018-07-22 13:49 | ASDISCHSUM ---
Discharge Information Plan Status:Home with No Needs Medically Cleared to Leave: Discharge Date:07/22/2018 12:44 PM CM D/C Disposition: ADT D/C Disposition:Home, Routine, Self-Care Projected Discharge Date:07/22/2018 12:44 PM Transportation at D/C: Discharge Delay Reason: Follow-Up Date:07/22/2018 12:44 PM Discharge Slot: Final Diagnosis: Placement Information Patient Contact Information Contact Name:CAMPBELL Relationship:Piotr Address: Work Phone: City:[place] Alternate Phone: State/[place] Code:[place] Email: Financial Information Financial Class:Medicare Primary Plan Desc:MEDICARE OUTPATIENT Primary Plan Number:[id number] Secondary Plan Desc:[place] [facility] Secondary Plan Number:[id number] Assessment Information LACE LACE Length of stay for Answers: Less than 1 day current admission Acuity / Level of Answers: No Care: Did the patient have an inpatient admission? Comorbidities - select Answers: Coronary Artery Disease all that apply Other Notes: HTN; HLD # of Emergency department Answers: 1-2 visits in the last 6 months Score: 4 Date Signed: 07/22/2018 01:48 PM Electronically Signed By:Macie Lock Case Management Discharge Plan Note Case Management Discharge Discharge Order Complete? Answers: Yes Patient to Obtain Answers: via Family Medications Transportation Arranged Answers: Family/Friends Family Notified Answers: Yes Notes: by pt Discharge Comments Notes: Pt is being D/Cd home independently today with no needs following OBS admission this morning for chest pain. No CM needs identified. Date Signed: 07/22/2018 01:47 PM Electronically Signed By:Macie Lock Intervention Information Intervention Type:*HERNANDEZ-Signed Date of Service:07/22/2018 01:46 PM Patient Type:Observation Staff Member:Leticia Lainez Hours: Discipline: Severity: Comment:
== END 2018-07-22 12:44 | disposition home or self-care (01) ==
LOC: F2W 07-22 01:34
PROVIDERS: ADMIT Family Medicine; ATTEND Family Medicine
DX: R07.9 Chest pain, unspecified (principal); I25.10 Atherosclerotic heart disease of native coronary artery without angina pectoris; E78.5 Hyperlipidemia, unspecified; I10 Essential (primary) hypertension; K44.9 Diaphragmatic hernia without obstruction or gangrene; K21.9 Gastro-esophageal reflux disease without esophagitis; N40.0 Benign prostatic hyperplasia without lower urinary tract symptoms; R51 Headache; Z95.5 Presence of coronary angioplasty implant and graft
CPT/HCPCS: 71046; 78452; 93005; 93017; 99285; A9500; G0378; J2785; 84484-ER